=== PATIENT | female | born 1980 | race Caucasian/White ===

== ENCOUNTER 2017-04-07 07:53 | Inpatient (IN) | payer BC, MEDICAID ==
[2017-04-07] MEDS ORDERED: cefOXitin 2 GM Vial ONE (08:09)
[2017-04-07] MEDS ORDERED: Succinylcholine 200 MG/10 ML MDV ONE (08:19)
[2017-04-07] MEDS ORDERED: Neostigmine Methylsulfate 1 MG/ML 5 ML Syringe ONE (08:19)
[2017-04-07] MEDS ORDERED: Ondansetron 4 MG/2 ML SDV ONE (08:19)
[2017-04-07] MEDS ORDERED: Rocuronium 50 MG/5 ML Vial ONE (08:19)
[2017-04-07] MEDS ORDERED: Propofol 200 MG/20 ML SDV ONE (08:19)
[2017-04-07] MEDS ORDERED: Dexamethasone 4 MG/ML SDV ONE (08:19)
[2017-04-07] MEDS ORDERED: Glycopyrrolate 0.2 MG/ML 5 ML MDV ONE (08:19)
[2017-04-07] MEDS ORDERED: Gabapentin 300 MG Cap PO ONE (08:30)
[2017-04-07] MEDS ORDERED: Dextrose 5%-Lactated Ringers 1,000 ML IV SCH ×2 (08:30→14:30)
[2017-04-07] MEDS ORDERED: Acetaminophen 500 MG Tab PO ONE (08:30)
[2017-04-07] MEDS ORDERED: Celecoxib 200 MG Cap PO ONE (08:30)
[2017-04-07] MEDS ORDERED: Scopolamine 1.5 MG Transdermal Patch TOP ONE (08:30)
[2017-04-07] MEDS ORDERED: Levofloxacin/Dextrose 5%-Water 500 MG in Premix Bag 1 BAG IV ONE (09:45)
[2017-04-07] MEDS ORDERED: Lidocaine 0.4%/D5W 2 GM/500 ML BAG IV SCH (10:30)
[2017-04-07] MEDS ORDERED: Ropivacaine 53 ML, Dexamethasone 8 MG, EPINEPHrine 0.4 MG, Sodium Chloride 0.9% 24.6 ML NERVRT SCH ×4 (10:30)
[2017-04-07] MEDS ORDERED: Ketamine 500 MG/5 ML MDV IV ONE (10:30)
[2017-04-07] MEDS ORDERED: Lidocaine 2% 100 MG/5 ML Syringe IVPUSH ONE (10:30)
[2017-04-07] MEDS ORDERED: Levofloxacin 500 MG/20 ML SDV ONE (10:31)
[2017-04-07] MEDS ORDERED: diphenhydrAMINE 50 MG/ML SDV ONE ×2 (11:08)
[2017-04-07] MEDS ORDERED: Doxycycline 100 MG Vial ONE ×2 (11:37→12:04)
[2017-04-07] MEDS ORDERED: hydrOXYzine HCl 100 MG/2 ML SDV IM ONE (13:33)
[2017-04-07] MEDS ORDERED: Ondansetron 4 MG/2 ML SDV IVPUSH PRN (15:00)
[2017-04-07] MEDS ORDERED: SCOPOLAMINE PATCH CHECK TOP SCH (15:00)
[2017-04-07] MEDS ORDERED: Metoclopramide 10 MG/2 ML SDV IVPUSH PRN (15:00)
[2017-04-07] MEDS ORDERED: SCOPOLAMINE PATCH ASK TOP SCH (15:00)
[2017-04-07] MEDS ORDERED: Labetalol 20 MG/4 ML Syringe IVPUSH PRN (15:00)
[2017-04-07] MEDS ORDERED: hydrOXYzine HCl 100 MG/2 ML SDV IM PRN (15:00)
[2017-04-07] MEDS ORDERED: diphenhydrAMINE 50 MG/ML SDV IVPUSH PRN (15:00)
[2017-04-07] MEDS: Acetaminophen 325 MG Tab PO SCH ×2 (15:56→21:25)
[2017-04-07] MEDS: Gabapentin 300 MG Cap PO SCH ×2 (15:57→21:25)
[2017-04-07] MEDS ORDERED: MVI, Adult with Vitamin K 10 ML, Thiamine 200 MG, Chromium/Copper/Mang/Selen/Zn 1 ML in... IV SCH ×4 (16:00)
[2017-04-07] MEDS ORDERED: Pantoprazole 40 MG Vial IVPUSH SCH (16:30)
[2017-04-07] MEDS: Heparin Sodium 5,000 Units/ML Vial SUBCUT SCH (18:06)
[2017-04-08] MEDS: Doxycycline 100 MG in Sodium Chloride 0.9% 100 ML IV SCH ×2 (00:28→12:06)
[2017-04-08] MEDS ORDERED: Iohexol 647 MG/ML 50 ML SDV PO SCH (00:30)
[2017-04-08] MEDS: Acetaminophen 325 MG Tab PO SCH ×4 (03:20→21:12)
[2017-04-08] MEDS: Heparin Sodium 5,000 Units/ML Vial SUBCUT SCH ×2 (05:56→17:15)
[2017-04-08] MEDS ORDERED: TRETINOIN TP PRN (07:14)
[2017-04-08] MEDS ORDERED: Dextrose 5%-Lactated Ringers 1,000 ML IV SCH (07:15)
--- NOTE | 2017-04-08 08:15 | PN ---
DATE OF SERVICE: 04/08/2017 SUBJECTIVE: Sallie is postop day one. Her vital signs have been stable with a temp max of 100.1. The pain has been controlled. She has no other questions or concerns. OBJECTIVE: GENERAL: Sallie Allison is a 37-year-old female. VITAL SIGNS: TPR is 98.8, 104, 16. Blood pressure 149/87. HEENT: Negative. NECK: Supple. HEART: Regular rate and rhythm. LUNGS: Clear. ABDOMEN: Dressings dry and intact. Abdominal binder is on. KEITH drain has put out 65 mils of a light pink serous drainage. EXTREMITIES: SCDs are on and there is no peripheral edema. ASSESSMENT: Laparoscopic gastric bypass surgery, liver biopsy, repair of diaphragmatic hernia with partial gastrectomy for morbid obesity, hepatomegaly, diaphragmatic hernia with ischemic part of the bypass of stomach after hunch formation on 04/07/2017. PLAN: 1. Decrease IV to 100 mL per hour. 2. Step-2 gastric bypass diet with no cereal. 3. DC telemetry and continuous pulse ox. 4. Vital sign and O2 saturation checks every 4 hours. 5. She is to resume home medications which involve betamethasone cream b.i.d. and Retin-A. 6. Good pulmonary toilet encouraged. 7. We will evaluate p.r.n. or in a.m. Jamila Yan PA-C /[id number]
[2017-04-08] MEDS: Celecoxib 200 MG Cap PO SCH (08:18)
--- NOTE | 2017-04-08 08:47 | CR ---
Upper GI. Findings: Contrast within small bowel loops. No small bowel dilatation. No gross evidence for leakag e. Contrast is not past the distal anastomosis.
[2017-04-08] MEDS: Gabapentin 300 MG Cap PO SCH ×3 (09:28→20:04)
[2017-04-08] MEDS ORDERED: Benzocaine/Cetylpyridinium/Menthol Lozenge MUCMEM PRN (09:29)
[2017-04-08] MEDS ORDERED: Ondansetron 4 MG Tab.DIS PO PRN (12:31)
[2017-04-08] MEDS ORDERED: diphenhydrAMINE 25 MG Cap PO PRN (12:31)
[2017-04-09] MEDS: Acetaminophen 325 MG Tab PO SCH ×2 (03:12→09:11)
[2017-04-09] MEDS: Heparin Sodium 5,000 Units/ML Vial SUBCUT SCH (05:32)
[2017-04-09] MEDS ORDERED: Magnesium Hydroxide 400 MG/5 ML Susp 30 ML Cup PO PRN (07:37)
[2017-04-09 07:41] VITALS: BP 134/79
[2017-04-09] MEDS: Cyanocobalamin (Vitamin B12) 1,000 MCG/ML SDV IM ONE ×2 (07:46→08:29)
[2017-04-09] MEDS: Celecoxib 200 MG Cap PO SCH (07:47)
--- NOTE | 2017-04-11 10:23 | OR ---
DATE OF PROCEDURE: 04/07/2017 PREOPERATIVE DIAGNOSIS: Morbid obesity. POSTOPERATIVE DIAGNOSES: 1. Morbid obesity. 2. Marked hepatomegaly. 3. Paraesophageal diaphragmatic hernia. 4. Focal area of gastric ischemia, status post gastric pouch formation. OPERATIVE PROCEDURE: 1. Laparoscopic Edith-en-Y gastric bypass with long limb gastroenterostomy (40798). 2. Khanh-Cut needle liver biopsy (90203). 3. Repair of paraesophageal diaphragmatic hernia (10995). 4. Partial gastrectomy (25578). ANESTHESIA: General. TANK CAR CLEANER: Jamila Yan PA-C INDICATIONS FOR PROCEDURE: This is a 37-year-old female presenting with longstanding morbid obesity and increasingly significant comorbidities. After preoperative evaluation and discussion, she wished to proceed with a gastric bypass procedure. Potential risks of the procedure including bleeding, infection, leaks from various GI tract closures, and problems with bowel obstruction over time as well as possibility of cardiopulmonary, septic, or hemorrhagic complications leading to were discussed, and the patient wishes to proceed. DETAILS OF PROCEDURE: The patient was taken to the operating room and placed in a supine position. After general endotracheal anesthesia was induced, she was converted to a lithotomy position. Using a live ultrasound, bilateral subcostal transversus abdominis plane blocks were placed, and after that the abdomen was prepped and draped, and then the orogastric tube placed. At 15 cm inferior, 5 cm left of xiphoid process, a transverse incision was made. The peritoneal cavity was entered under direct vision with an Optiview trocar and inflated to 15 mmHg pressure with CO2. Laparoscope was reinserted. No underlying trocar insertion site injuries were seen. Following this, 5 additional trocars were placed across the upper and mid abdomen. General exploration was undertaken. The patient was noted to have a marked hepatomegaly with liver volume being roughly 2 to 3 times normal, and liver grossly fatty infiltrated. Khanh-Cut needle biopsies were obtained from the left lobe of the liver. Minimal bleeding from the biopsy sites was controlled with electrocautery. The omentum was then divided in the midline up to the level of the transverse colon. This allowed identification of the small bowel to the ligament of Treitz. Small bowel was then traced out 200 cm distal to that point where the ecrh-ho-ipyl enteroenterostomy was accomplished with an internal firing of the Endo-FREDRICK 60 mm stapler. The common opening was then closed transversely with the same stapler and angles anastomosed and mesenteric defect approximated with some 0 Ethibond stitch, along with fibrin sealant. Divided end of Edith limb was then from the mesentery for a few centimeters, which allowed an antecolic position of the Edith limb up to the level of the gastroesophageal junction without tension. Upon elevation of the liver, the patient was noted to have a moderate paraesophageal diaphragmatic hernia. This was associated with some perigastric fat and fundus of the stomach coming up anterior to the course of the esophagus. The area was reduced and the peritoneum overlying the hernia incised and reflected downward. The diaphragmatic hernia was then repaired with some 0 Ethibond sutures, reinforced with PTFE pledgets, and following this, the gastrointestinal balloon catheter was inflated to 15 mL and pulled up snugly against EG junction and that area marked with electrocautery over the apex of the balloon. With the balloon catheter having been withdrawn, the lesser omental tissue adjacent to gastric cardia was incised allowing dissection behind the stomach at that level. Pouch formation was initiated with a transverse firing of the FREDRICK stapler at the level of the cauterized yady at the gastric cardia. Pouch was then completed with 1 additional firing of the FREDRICK stapler up to and through the angle of His. Upon completion of the pouch, both staple lines were noted to be intact. At the corner of the bypassed portion of the stomach, this was quite ischemic in appearance, and given this, that area was then resected with additional FREDRICK stapler firing and that specimen of the stomach then retrieved and sent as a surgical specimen. The remaining areas of stomach at that point appeared to be well perfused with nicely intact staple lines. The anvil of a 25 mm EEA stapler was then attached to a [place] sump type tube. The latter was brought down through the mouth and taken out through a small opening in the gastric pouch, allowing the anvil likewise to be pulled down to within the gastric pouch. The main body of the EEA stapler was then placed through an opening in the Edith limb, brought up to the anvil, united with it, thus creating the gastrojejunostomy. Upon removal of the stapler, double donuts of mucosa were noted within it. Small bowel was closed off with a vascular staple line. Gastrojejunostomy was reinforced with some 0 Ethibond seromuscular stitch along with fibrin sealant. A leak test was accomplished with injection of 120 mL of air in the gastric pouch while the anastomosis was submerged with an antibiotic-containing saline solution. No leaks were identified. One Popeye-Quintero drain was then placed through the left lateral trocar site, positioned against the gastrojejunostomy and up over the area of the splenic fossa. The remaining trocars were removed and peritoneal cavity deflated. Incision was closed with some 4-0 Vicryl skin stitch, and the drain was similarly affixed with 4-0 Vicryl stitch. The patient was taken to the recovery room in satisfactory condition. Physician speech pathologist assistant, Jamila Yan PA-C, played an essential role in assisting in this case, helping to position the patient, retract structures as needed, as well as suturing and cutting sutures when indicated. Her presence improved the patient's safety and decreased the operative time. Choco Houston MD /[id number]
--- NOTE | 2017-04-11 10:38 | DISCH ---
DIAGNOSES: 1. Morbid obesity. 2. Marked hepatomegaly. 3. Paraesophageal diaphragmatic hernia. 4. Allergic rhinitis. 5. History of cholelithiasis status post cholecystectomy. 6. History of ulcerative colitis. PROCEDURES: Done on 04/07/2017, laparoscopic Edith-en-Y gastric bypass, long limb gastroenterostomy, liver biopsy, repair of paraesophageal diaphragmatic hernia and resection of a portion of bypassed stomach that became ischemic after the formation of gastric pouch. SUMMARY: This is a 37-year-old female presenting with longstanding morbid obesity. After preoperative evaluation and discussion, she wished to proceed with a gastric bypass procedure. This was done on the day of admission with the above combined procedures performed as well. Postoperatively, she has had no significant problems. The patient is presently on a step 2 gastric bypass diet. She will be discharged home with Celebrex and Tylenol for pain, and otherwise, will be seeing Jamila Yan in [facility] on 04/18/2017.
== END 2017-04-09 09:24 | disposition home or self-care (01) | DRG 403 ==
LOC: JP.SDS 07:53 → JP.SDSSCHI 07:53 → EDSTATUS 09:45 → JP.2SS 13:10
PROVIDERS: ADMIT Surgery; ATTEND Surgery
PROC: 0DB64ZZ Excision of Stomach, Percutaneous Endoscopic Approach (ICD-10-PCS; principal; 2017-04-07)
PROC: 0BQR4ZZ (ICD-10-PCS; principal; 2017-04-07)
PROC: 0D164ZA Bypass Stomach to Jejunum, Percutaneous Endoscopic Approach (ICD-10-PCS; principal; 2017-04-07)
PROC: 0FB24ZX Excision of Left Lobe Liver, Percutaneous Endoscopic Approach, Diagnostic (ICD-10-PCS; principal; 2017-04-07)
PROC: 0BQS4ZZ (ICD-10-PCS; principal; 2017-04-07)
DX: E66.01 Morbid (severe) obesity due to excess calories (principal); Z68.39 Body mass index [BMI] 39.0-39.9, adult; R16.0 Hepatomegaly, not elsewhere classified; K44.9 Diaphragmatic hernia without obstruction or gangrene; K76.0 Fatty (change of) liver, not elsewhere classified; K31.89 Other diseases of stomach and duodenum; Z87.891 Personal history of nicotine dependence; Z88.1 Allergy status to other antibiotic agents; Z88.2 Allergy status to sulfonamides; Z88.8 Allergy status to other drugs, medicaments and biological substances
CPT/HCPCS: 36415; 74240; 74240-26; 80053; 82728; 83735; 84100; 85027; 86850; 86900; 86901; 88305; 88307; 88313; 94762; A9270-GY; C9113; J0171; J0330; J0694; J1100; J1200; J1644; J1956; J2001; J2405; J2704; J2710; J2795; J3010; J3410; J3411; J3420; J7030; J7040; J7042; J7050; Q9967

== ENCOUNTER 2020-02-28 06:35 | Day surgery (SDC) | payer BC ==
[~2020-02-28 06:35] MED LIST: MVI, Adult with Vitamin K 10 ML, Thiamine 200 MG, Chromium/Copper/Mang/Selen/Zn 1 ML in... IV ONE
[2020-02-28] MEDS ORDERED: Propofol 200 MG/20 ML SDV ONE (06:56)
[2020-02-28] MEDS ORDERED: Midazolam 1 MG/ML 2 ML SDV ONE (06:56)
[2020-02-28] MEDS ORDERED: fentaNYL 100 MCG/2 ML SDV ONE (06:56)
[2020-02-28] MEDS ORDERED: Cyanocobalamin (Vitamin B12) 1,000 MCG/ML SDV IM ONE (07:00)
[2020-02-28] MEDS ORDERED: Lactated Ringers 1,000 ML IV SCH (07:00)
[2020-02-28] MEDS ORDERED: Glycopyrrolate 0.2 MG/ML 2 ML SDV IVPUSH ONE (07:45)
[2020-02-28] MEDS ORDERED: Ondansetron 4 MG/2 ML SDV IVPUSH ONE (09:30)
[2020-02-28 09:42] VITALS: BP 104/71; PULSE 73
[2020-02-29 17:13] LABS: H. PYLORI BREATH TEST Negative (Negative)
--- NOTE | 2020-03-03 10:14 | OR ---
DATE OF PROCEDURE: 02/28/2020 SURGEON: Choco Houston MD PREOPERATIVE DIAGNOSIS: Postprandial abdominal pain, status post Edith-en-Y gastric bypass. POSTOPERATIVE DIAGNOSES: 1. Postprandial abdominal pain, status post Edith-en-Y gastric bypass. 2. Normal upper gastrointestinal endoscopic exam, status post Edith-en-Y gastric bypass. OPERATIVE PROCEDURE: Upper GI endoscopy. ANESTHESIA: IV sedation. INDICATION FOR PROCEDURE: This is a 39-year-old presenting with postprandial abdominal pain. In the past, she has had episodes of H. pylori infection treated with antibiotics. She presents now with postprandial pain developing soon after eating. The plan is to proceed with upper GI endoscopy with biopsies as indicated. Potential risks including bleeding and perforation were discussed, and the patient wishes to proceed. DETAILS OF PROCEDURE: The patient was taken to the operating room and placed in the left lateral decubitus position. IV sedation was administered, after which the upper GI endoscope was passed orally through the length of the esophagus and into the gastric pouch, and from there through the gastrojejunostomy roughly 20 cm into the Edith limb. Overall, the examination was entirely normal. There were no areas of inflammation or stricturing. There was no bile or sense of obstructive process in the area of the Edith limb. At that point, the scope was then withdrawn and the procedure then concluded. Plan will be to obtain an H. pylori breath test today. We will otherwise continue the antisecretory medications. My suspicion will be made again for partial small bowel obstruction. We will obtain a CT scan of the abdomen and pelvis with IV and oral contrast on 03/05/20 and then see her immediately after that for further evaluation. The patient is down to a BMI of 18 and has a diagnosis of ulcerative colitis and Crohn's disease, but has not been on any of these medications, as colonoscopy was recently okay. One way or another in the short-term, we are going to need to address her nutritional status. If partial small bowel obstruction is not identified and we are not able to re- establish adequate oral intake, gastrostomy feeding tube may be necessary in the next few weeks. Choco Houston MD /[id number]
== END 2020-02-28 10:00 | disposition home or self-care (01) ==
LOC: JP.SDS 06:35
PROVIDERS: ATTEND Surgery
DX: R10.13 Epigastric pain (principal); E44.0 Moderate protein-calorie malnutrition; K91.2 Postsurgical malabsorption, not elsewhere classified; E53.8 Deficiency of other specified B group vitamins; E53.9 Vitamin B deficiency, unspecified; E55.9 Vitamin D deficiency, unspecified; E60 Dietary zinc deficiency; E50.9 Vitamin A deficiency, unspecified; B37.0 Candidal stomatitis; K21.9 Gastro-esophageal reflux disease without esophagitis; Z98.84 Bariatric surgery status; Z68.1 Body mass index [BMI] 19.9 or less, adult; Z98.890 Other specified postprocedural states; Z87.891 Personal history of nicotine dependence; Z87.19 Personal history of other diseases of the digestive system
CPT/HCPCS: 43235; 81025; 83013; J2250; J2405; J2704; J3010; J3411; J3420; J3490; J7120

== ENCOUNTER 2020-03-11 06:14 | Inpatient (IN) | payer BC, MEDICAID ==
[2020-03-11] MEDS ORDERED: Dexamethasone 4 MG/ML SDV ONE (06:17)
[2020-03-11] MEDS ORDERED: Rocuronium 50 MG/5 ML Vial ONE (06:17)
[2020-03-11] MEDS ORDERED: Neostigmine Methylsulfate 1 MG/ML 5 ML Syringe ONE (06:17)
[2020-03-11] MEDS ORDERED: fentaNYL 250 MCG/5 ML SDV ONE ×2 (06:17→08:46)
[2020-03-11] MEDS ORDERED: Propofol 200 MG/20 ML SDV ONE (06:17)
[2020-03-11] MEDS ORDERED: Glycopyrrolate 0.2 MG/ML 5 ML MDV ONE (06:17)
[2020-03-11] MEDS ORDERED: Ondansetron 4 MG/2 ML SDV ONE (06:17)
[2020-03-11] MEDS ORDERED: Succinylcholine 200 MG/10 ML MDV ONE (06:17)
[2020-03-11] MEDS ORDERED: Lidocaine 1% with EPINEPHrine 1:100,000 50 ML MDV ONE (06:30)
[2020-03-11] MEDS ORDERED: Bupivacaine 0.5% 50 ML MDV ONE (06:30)
[2020-03-11] MEDS ORDERED: Meropenem 500 MG SDV ONE (06:30)
[2020-03-11] MEDS ORDERED: Celecoxib 200 MG Cap PO ONE (06:45)
[2020-03-11] MEDS ORDERED: Scopolamine 1.5 MG Transdermal Patch TOP SCH (06:45)
[2020-03-11] MEDS ORDERED: Acetaminophen 500 MG Tab PO ONE (06:45)
[2020-03-11] MEDS ORDERED: Dextrose 5%-Lactated Ringers 1,000 ML IV SCH (07:00)
[2020-03-11] MEDS ORDERED: HYDROmorphone/Normal Saline 15 MG/30 ML PCA IV PRN (07:31)
[2020-03-11] MEDS ORDERED: Naloxone 0.4 MG/ML SDV IVPUSH PRN (07:31)
[2020-03-11] MEDS ORDERED: Meropenem 500 MG in Sodium Chloride 0.9% 50 ML IV ONE (08:00)
[2020-03-11] MEDS ORDERED: Naloxone 0.4 MG/ML SDV IV PRN (08:00)
[2020-03-11] MEDS ORDERED: Ketamine 500 MG/5 ML MDV IV SCH (08:15)
[2020-03-11] MEDS ORDERED: Magnesium Sulfate 2.4 GM in Sodium Chloride 0.9% 250 ML IV ONE (08:15)
[2020-03-11] MEDS ORDERED: Magnesium Sulfate 1.5 GM in Sodium Chloride 0.9% 100 ML IV SCH (08:15)
[2020-03-11] MEDS ORDERED: Ketamine 50 MG in Sodium Chloride 0.9% 49.5 ML IV SCH (08:15)
[2020-03-11] MEDS ORDERED: Lactated Ringers 1,000 ML ONE (09:48)
[2020-03-11] MEDS ORDERED: Ondansetron 4 MG/2 ML SDV IVPUSH ONE (10:22)
[2020-03-11] MEDS ORDERED: Metoclopramide 10 MG/2 ML SDV IVPUSH ONE (10:53)
[2020-03-11] MEDS: Cyclobenzaprine 10 MG Tab PO PRN (11:28)
[2020-03-11] MEDS: Dextrose 5%-Lactated Ringers 1,000 ML IV SCH ×2 (11:45→21:11)
[2020-03-11] MEDS ORDERED: Ondansetron 4 MG/2 ML SDV IVPUSH PRN (12:00)
[2020-03-11] MEDS ORDERED: Metoclopramide 10 MG/2 ML SDV IVPUSH PRN (12:00)
[2020-03-11] MEDS ORDERED: Acetaminophen 500 MG Tab PO PRN (12:00)
[2020-03-11] MEDS ORDERED: diphenhydrAMINE 50 MG/ML SDV IVPUSH PRN (12:00)
[2020-03-11] MEDS ORDERED: Labetalol 20 MG/4 ML Syringe IVPUSH PRN (12:00)
[2020-03-11] MEDS ORDERED: Calcium Gluconate 10% 1 GM/10 ML SDV IVPUSH PRN (12:00)
[2020-03-11] MEDS: Pantoprazole 40 MG Vial IVPUSH SCH (13:26)
[2020-03-11] MEDS: Acetaminophen 500 MG Tab PO SCH ×2 (14:22→21:09)
[2020-03-11] MEDS: Meropenem 500 MG in Sodium Chloride 0.9% 50 ML IV SCH ×2 (14:40→19:16)
[2020-03-11] MEDS: MVI, Adult with Vitamin K 10 ML, Thiamine 200 MG, Chromium/Copper/Mang/Selen/Zn 1 ML in... IV SCH ×4 (15:20)
--- NOTE | 2020-03-11 15:28 | OR ---
DATE OF PROCEDURE: 03/11/2020 SURGEON: Choco Houston MD PREOPERATIVE DIAGNOSES: Postprandial abdominal pain associated with: 1. Probable small bowel volvulus. 2. Probable vascular compression of duodenum (superior mesenteric artery syndrome). POSTOPERATIVE DIAGNOSES: 1. Partial small bowel obstruction secondary to small bowel volvulus. 2. Vascular compression of duodenum (superior mesenteric artery syndrome). OPERATIVE PROCEDURES: Exploratory laparotomy with lysis of adhesions and: 1. Reduction of small bowel volvulus and closure of internal hernia (79950). 2. Lysis of duodenal bands (96052). 3. Small bowel resection (72743). 4. Formation of Edith-en-Y duodenojejunostomy (30689). 5. Placement of Interceed mesh to displace pelvic and abdominal wall from underlying viscera to limit recurrent adhesion formation (00333). ANESTHESIA: General. MEDICAL RECORD TECHNICIAN: Jamila Yan PA-C INDICATIONS FOR PROCEDURE: This is a 39-year-old status post Edith-en-Y gastric bypass, who continues to have persistent problems with postprandial crampy abdominal pain and excessive weight loss with present BMI being in the 18 range. Upper GI endoscopy last week was unremarkable, and H pylori breath test was negative. A CT scan was subsequently obtained, which showed what appeared to be some twisting of the mesentery consistent with a small bowel volvulus. There was also a tight configuration of the angle between the superior mesenteric artery and aorta with some compression of the duodenum evident on CT scan, raising the likelihood of an element of superior mesenteric artery syndrome. The plan, therefore, will be to proceed with exploratory laparotomy. We will reduce any volvulus that might be necessary and close internal hernias and other small bowel resections as indicated. We will divide the Edith limb roughly 30 cm proximal to the present jejunojejunostomy and use that to bring up as a Edith limb to the junction of the second and third portions of the duodenum and also lyse the ligament of Treitz and duodenal bands for treatment of the probable superior mesenteric artery syndrome and then proceed with a secondary enteroenterostomy between the remaining Edith limb and the small bowel roughly 20 cm distal to the present jejunojejunostomy, so as to bypass any problems that might be present with that anastomosis, which at this time will require pancreaticoduodenal drainage both via the standard duodenal into the jejunal route, as well as the new duodenojejunostomy. Potential risks of the procedure including bleeding, infection, leaks from various GI tract closures, possible persistence of pain or other problems postoperatively, possible need for additional nutritional support via subsequently placed gastrostomy tube were all reviewed, and the patient wishes to proceed. At this point, we elected, after discussion, not to proceed with a gastrostomy tube in anticipation that she will likely be able to resume reasonably good oral intake more or less immediately after the surgery. DETAILS OF PROCEDURE: The patient was taken to the operating room and placed in a supine position. After general endotracheal anesthesia was induced, a Grimes catheter was inserted, and the abdomen was prepped and draped. The upper midline incision was made and carried down through the skin and subcutaneous tissue, and into the peritoneal cavity. Upon entering the peritoneal cavity, general exploration was undertaken. It was notable that the duodenum was obviously somewhat edematous and boggy. There was a palpable and quite narrow angle between the superior mesenteric artery and the aorta at the level where the duodenum crossed those structures. Apart from that, the Edith limb appeared to be unremarkable. There was a volvulus underneath the Edith limb containing several loops of small bowel. These were reduced and that mesenteric defect then closed with a 2-0 silk stitch. There was also a mesenteric defect to much lesser degree between the leaves of the jejunojejunostomy, and this was likewise closed at this time with a 2-0 silk stitch. Initially then, the ligament of Treitz was divided, and the additional duodenal bands superior to the duodenum as it passed underneath the superior mesenteric artery were taken down bluntly, resulting in a visible lowering of the duodenum as it passed underneath the superior mesenteric artery. At this point, the small bowel was traced out 20 cm proximal to the present jejunojejunostomy, where it was divided. Small bowel to small bowel was resected and the proximal end of this, which was marginally devascularized, this was felt not to be needed to be sent as a surgical specimen. The present Edith limb, still connected to the initial jejunojejunostomy, was then brought up easily through an antecolic approach to the junction of the second and third portions of the duodenum. After a stay stitch was placed, small enterotomies in each segment of bowel were made and a 60-mm FREDRICK costello load was used to create an internal opening, and the common opening then closed transversely with a purple load. Angles of anastomosis and mesenteric defect were reinforced with some 3-0 Vicryl stitch, as well as fibrin sealant. The GI tract continuity was then re-established with anastomosis between the remaining more proximal Edith limb which, at this point, still measured around 80 cm, and the small bowel slightly distal to the original jejunojejunostomy, this being about 20 cm. It was notable that the patient had several 100 cm of common limb, so this would by no means be an issue, as earlier in the case, the entire length of the small bowel was run and no additional abnormalities noted. This anastomosis was then accomplished with an internal firing of the Endo-FREDRICK 60 mm stapler, followed by a second 30 mm internal firing of the FREDRICK stapler. Common opening was closed transversely with a purple load, and the angles of anastomosis and mesenteric defect were approximated with some 3-0 Vicryl stitch. The Edith limb going up to the duodenum passed underneath the mesentery of this area of the anastomosis, but we were careful to configure that there was no compression in terms of how the underlying mesenteric defect was approximated. The second anastomosis was then reinforced with fibrin sealant as well and the abdomen irrigated with antibiotic-containing saline solution. The Interceed mesh was then placed underneath the incision, from there down toward the pelvis to limit recurrent adhesion formation. At that point, bilateral transversus abdominis plane blocks had been placed. Midline fascia was approximated with a #2 Vicryl stitch, which was then also anesthetized with some 1% lidocaine mixed with Marcaine. The subcutaneous tissue was then closed with 2 layers of 3-0 and 4-0 Vicryl stitch deep and mary for the skin. Dressing was applied. The patient was taken to the recovery room in satisfactory condition. Choco Houston MD /[id number]
[2020-03-11] MEDS: Heparin Sodium 5,000 Units/ML Vial SUBCUT SCH (17:08)
[2020-03-12] MEDS: Meropenem 500 MG in Sodium Chloride 0.9% 50 ML IV SCH (01:08)
[2020-03-12] MEDS: Cyclobenzaprine 10 MG Tab PO PRN ×3 (01:24→19:06)
[2020-03-12] MEDS: Dextrose 5%-Lactated Ringers 1,000 ML IV SCH ×2 (03:48→11:12)
[2020-03-12] MEDS ORDERED: methylPREDNISolone Sodium Succinate 125 MG/2 ML SDV IVPUSH ONE ×2 (04:35→13:15)
[2020-03-12] MEDS ORDERED: Iopamidol 612 MG/ML 50 ML SDV PO ONE (05:23)
[2020-03-12] MEDS: Heparin Sodium 5,000 Units/ML Vial SUBCUT SCH ×2 (06:15→18:18)
[2020-03-12] MEDS: Acetaminophen 500 MG Tab PO SCH ×2 (06:15→13:41)
[2020-03-12] MEDS ORDERED: hydrOXYzine HCl 25 MG Tab PO PRN (07:06)
[2020-03-12] MEDS ORDERED: Ondansetron 4 MG Tab.DIS PO PRN (07:06)
[2020-03-12] MEDS ORDERED: ClonazePAM 0.5 MG Tab PO PRN (07:15)
--- NOTE | 2020-03-12 07:48 | CRLCR ---
Indication: Post bariatric surgery Technique: Upper GI abdomen 3 views Comparison: None Findings/Impression: Oral contrast is intraluminal. No sign of contrast extravasation/leak. No sign of bowel obstruction. Postoperative free intraperitoneal air is expected. No other significant finding. Dictated by Ruben Chinchilla MD @ Mar 12 2020 7:42AM Signed by Dr. Ruben Chinchilla @ Mar 12 2020 7:46AM
[2020-03-12] MEDS: hydrOXYzine HCL 100 MG/2 ML SDV IM PRN ×4 (08:13→20:40)
[2020-03-12] MEDS ORDERED: fentaNYL/Normal Saline 600 MCG/30 ML PCA Vial IV PRN (09:00)
[2020-03-12] MEDS: SCOPOLAMINE PATCH CHECK TOP SCH (09:09)
[2020-03-12] MEDS: Celecoxib 200 MG Cap PO SCH ×2 (09:09→20:13)
--- NOTE | 2020-03-12 09:13 | PN ---
DATE OF SERVICE: 03/12/2020 SUBJECTIVE: Sallie has been afebrile. Oral intake 630 on a step-one diet. Urine output 1000. She is on the Dilaudid VEHICLE ASSEMBLER and getting scheduled Tylenol, Flexeril p.r.n., and scheduled on Celebrex. Reports extreme pain whenever she moves, especially when getting in and out of bed. Nursing staff states that she slept well during the night. She had no complaints and used her VEHICLE ASSEMBLER. She is recording better pain control. She is alert, wide awake, and angry. Requested to go through operative report, which was done. PHYSICAL EXAMINATION: GENERAL: Sallie Allison is a 39-year-old female, alert, oriented. VITAL SIGNS: TPR is 96, 49, 18, blood pressure 104/62. HEENT: Negative. NECK: Supple. HEART: Regular rate and rhythm. LUNGS: Clear. ABDOMEN: Dressings dry, intact. Abdominal binder is on. EXTREMITIES: Without peripheral edema. ASSESSMENT: Exploratory laparotomy with lysis of adhesions and: 1. Reduction of small bowel volvulus and closure of internal hernia. 2. Lysis of duodenal bands. 3. Small bowel resection. 4. Formation of Edith-en-Y duodenojejunostomy. 5. Placement of Interceed mesh to displace pelvic and small bowel from underlying viscera to limit recurrent adhesion formation. POSTOPERATIVE DIAGNOSES: 1. Partial small bowel obstruction secondary to small bowel volvulus. 2. Vascular compression of duodenum (superior mesenteric artery syndrome). PLAN: Decrease IV to 100 mL per hour, Zofran ODT 4 mg sublingual every 4 hours p.r.n. nausea, hydroxyzine or Atarax 25 mg every 4 hours p.r.n. pain and/or anxiety. Operative report was explained in detail to the patient. Encouraged to use incentive spirometer 10 times every hour while awake. Sallie also wanted an exact date of discharge, and parameters were discussed to discharge, will be management of pain, able to manage with her activities of daily living, and to either be passing flatus or have a bowel movement before discharge. The exact date is difficult to predict, but generally she may be able to be discharged either March 12 or . Jamila Yan PA-C /[id number]
[2020-03-12] MEDS ORDERED: diphenhydrAMINE 50 MG/ML SDV IVPUSH ONE (12:50)
[2020-03-12] MEDS: Pantoprazole 40 MG Vial IVPUSH SCH (13:23)
[2020-03-12] MEDS ORDERED: Sodium Chloride 0.9% 10 ML Syringe FLUSH ONE (13:39)
[2020-03-12] MEDS ORDERED: Iopamidol 755 Mg/ML 100 ML Bottle IV SCH (13:45)
--- NOTE | 2020-03-12 15:33 | CRLCT ---
INDICATION: Increased postop pain. Surgical history not provided at time of dictation. TECHNIQUE: CT abdomen acquired with 80 cc Isovue 370 IV contrast. Coronal and sagittal reconstructions. COMPARISON: CT of the abdomen and pelvis 03/05/2020. FINDINGS: There is new moderate intraperitoneal free air compatible with recent surgery. New moderate amount of simple appearing free fluid within the visualized right pelvis. Prior postoperative changes of Edith-en-Y gastric bypass. There appears to be a new anastomosis in the central upper abdomen which could represent interval small bowel resection. No evidence of bowel obstruction on today`s exam. There is dense enteric contrast within the colon which causes some streak artifact. This may be from a prior exam. There is a 2.3 x 3.6 extraluminal gas and fluid collection within the left anterior abdomen (series 2, image 63). No peripheral capsule to suggest an abscess. New midline anterior abdominal wall surgical mary. The liver, spleen, pancreas, and adrenal glands are negative. Hepatic and portal veins are patent. Cholecystectomy. Stable mild intra and extrahepatic bile duct dilation which is likely related to post cholecystectomy state. Symmetric enhancement of the kidneys. No change in moderate right hydronephrosis. No obstructing stone is identified in the upper abdomen. No left hydronephrosis. Partially visualized bladder appears distended. No lymphadenopathy. The bones are unremarkable. The lung bases are clear. IMPRESSION: 1. New postoperative changes in the abdomen with anastomosis in the central upper abdomen, moderate intraperitoneal free air, free fluid in the right pelvis, and midline abdominal wall surgical mary. No evidence of bowel obstruction on today`s exam. 2. 2.3 x 3.6 cm non organized extraluminal gas and fluid collection in the left anterior abdomen. 3. Stable moderate right hydronephrosis of uncertain etiology. Please note that all CT scans at this facility use dose modulation, iterative reconstruction, and/or weight-based dosing when appropriate to reduce radiation dose to as low as reasonably achievable. Dictated by Jamila Reese MD @ Mar 12 2020 3:12PM Signed by Dr. Jamila Reese @ Mar 12 2020 3:32PM
--- NOTE | 2020-03-12 15:50 | CRLCT ---
INDICATION: Pain. COMPARISON: none TECHNIQUE: CT volumetric acquisition was performed of the thorax during intravenous infusion of 55 cc of Isovue-370 nonionic intravenous contrast. FINDINGS: The CT images are of acceptable quality and demonstrate normal uniform vascular enhancement within the pulmonary arteries. There are no suspicious filling defects which would indicate pulmonary thromboemboli. The lungs are clear of suspicious nodules, masses or infiltrates. There is no evidence of pulmonary edema. The heart size appears normal. There is no evidence of pericardial fluid or pleural fluid. There is no evidence of mediastinal or axillary lymphadenopathy. There is a large amount of free air within the visualized upper abdomen predominantly about the left hepatic margin and about the patient`s Edith-en-Y gastric bypass surgical site. A small amount of air tracks within the periportal region. IMPRESSION: Positive findings pneumoperitoneum which could reflect potential perforation of the gastric bypass surgical site. No evidence of pulmonary thromboembolism. The lungs appear clear. Note: I discussed the exam findings with Jamila Yan PA-C at the completion of the exam on 03/12/2020 at 3:43 p.m. Dictated by Reno Harrison MD @ 03/12/2020 3:48:48 PM Please note that all CT scans at this facility use dose modulation, iterative reconstruction, and/or weight-based dosing when appropriate to reduce radiation dose to as low as reasonably achievable. Dictated by: Reno Harrison MD @ 03/12/2020 15:48:55 (Electronically Signed)
[2020-03-12] MEDS: MVI, Adult with Vitamin K 10 ML, Thiamine 200 MG, Chromium/Copper/Mang/Selen/Zn 1 ML in... IV SCH ×4 (15:57)
[2020-03-12] MEDS: Acetaminophen 1,000 MG in Premix Bag 1 BAG IV SCH (17:03)
[2020-03-12] MEDS ORDERED: diphenhydrAMINE 25 MG Cap PO PRN (19:54)
[2020-03-12] MEDS ORDERED: diphenhydrAMINE 50 MG/ML SDV IVPUSH PRN (19:54)
[2020-03-12] MEDS ORDERED: Ondansetron 4 MG/2 ML SDV IVPUSH PRN (19:54)
[2020-03-12] MEDS ORDERED: fentaNYL/Normal Saline 600 MCG/30 ML PCA Vial IV SCH (20:00)
[2020-03-12] MEDS ORDERED: Montelukast 10 MG Tab PO SCH (21:00)
[2020-03-12] MEDS: Piperacillin/Tazobactam 3.375 GM in Sodium Chloride 0.9% 50 ML IV SCH (21:32)
[2020-03-13] MEDS ORDERED: Ondansetron 4 MG/2 ML SDV IVPUSH PRN
[2020-03-13] MEDS ORDERED: diphenhydrAMINE 25 MG Cap PO PRN
[2020-03-13] MEDS ORDERED: fentaNYL/Normal Saline 600 MCG/30 ML PCA Vial IV SCH
[2020-03-13] MEDS ORDERED: diphenhydrAMINE 50 MG/ML SDV IVPUSH PRN
[2020-03-13] MEDS ORDERED: Naloxone 0.4 MG/ML SDV IVPUSH PRN
[2020-03-13] MEDS: Acetaminophen 1,000 MG in Premix Bag 1 BAG IV SCH ×3 (00:33→10:18)
[2020-03-13] MEDS: hydrOXYzine HCL 100 MG/2 ML SDV IM PRN ×2 (00:55→09:04)
[2020-03-13] MEDS: Dextrose 5%-Lactated Ringers 1,000 ML IV SCH (02:35)
[2020-03-13] MEDS: Piperacillin/Tazobactam 3.375 GM in Sodium Chloride 0.9% 50 ML IV SCH (03:04)
[2020-03-13] MEDS: Cyclobenzaprine 10 MG Tab PO PRN (03:09)
[2020-03-13] MEDS ORDERED: Sodium Chloride 0.9% 10 ML Syringe FLUSH ONE (05:43)
[2020-03-13] MEDS ORDERED: Iopamidol 612 MG/ML 500 ML Multipack Bottle IV ONE (05:43)
[2020-03-13] MEDS ORDERED: methylPREDNISolone Sodium Succinate 125 MG/2 ML SDV IVPUSH ONE (06:30)
[2020-03-13] MEDS: Heparin Sodium 5,000 Units/ML Vial SUBCUT SCH (06:30)
[2020-03-13] MEDS ORDERED: diphenhydrAMINE 50 MG/ML SDV IVPUSH ONE (06:35)
[2020-03-13] MEDS ORDERED: Iopamidol 612 MG/ML 30 ML SDV PO ONE (07:02)
[2020-03-13] MEDS ORDERED: Piperacillin/Tazobactam/Dext 3.375 GM in Premix Bag 1 BAG IV SCH (08:00)
[2020-03-13 08:34] VITALS: BP 113/61; PULSE 62
[2020-03-13] MEDS: SCOPOLAMINE PATCH CHECK TOP SCH (08:52)
[2020-03-13] MEDS: Celecoxib 200 MG Cap PO SCH (08:52)
[2020-03-13] MEDS ORDERED: Cyanocobalamin (Vitamin B12) 1,000 MCG/ML SDV IM ONE (09:00)
--- NOTE | 2020-03-13 10:40 | CT ---
Abdomen Pelvis w Cont CLINICAL HISTORY: Postbariatric surgery COMPARISON: 03/12/2020. TECHNIQUE: Axial tomographic images are obtained from the dome of the diaphragm to the pubic symphysis with IV contrast enhancement. Oral contrast was used. 03/12/2020 FINDINGS: The lung bases are clear. The liver shows no mass or biliary dilatation. Gallbladder is been removed. The spleen has a normal size and shape. Patient is status post the bariatric surgery with Edith-en-Y. There is free intraperitoneal air which is similar to prior study. The there is no extravasation of oral contrast. Small pocket of the mottled air seen in the anterior left abdomen on prior study has involuted. Some of this may been volume averaging with the bowel and bowel content. The pancreas has a normal contour. The adrenal glands appear normal bilaterally. The kidneys no mass, stones or hydronephrosis. The aorta is normal contour. There is no suspicious retroperitoneal adenopathy. There is moderate free fluid in the pelvis. This is increased since prior study. Bladder has a normal contour. Uterus is to the left of midline. There is some mild gaseous distention of colon which is likely some ileus. IMPRESSION: Residual free intraperitoneal air which is postoperative No evidence to suggest extravasation on the current study Increase in free pelvic fluid is nonspecific. Gas is distention of the colon is likely some postop ileus ileus
[2020-03-13] MEDS ORDERED: oxyCODONE 5 MG Tab PO PRN (11:15)
[2020-03-13] MEDS: Pantoprazole 40 MG Vial IVPUSH SCH (12:18)
[2020-03-13] MEDS ORDERED: Magnesium Hydroxide 400 MG/5 ML Susp 30 ML Cup PO PRN (13:12)
--- NOTE | 2020-03-14 09:22 | DISCH ---
ADMISSION DIAGNOSES: 1. Postprandial abdominal pain. 2. Status post Edith-en-Y gastric bypass surgery. 3. Unspecified surgical malabsorption. 4. B12 deficiency. 5. Moderate protein-calorie malnutrition, low weight for height. 6. Depression. PHQ-9 of 14. DISCHARGE DIAGNOSIS: Exploratory laparotomy with lysis of adhesions. Date of procedure, 03/11/2020. Surgeon, Choco Houston MD. 1. Reduction of small bowel volvulus and closure of internal hernia. 2. Lysis of duodenal bands. 3. Small bowel resection. 4. Formation of Edith-en-Y duodenal jejunostomy. 5. Placement of Interceed mesh to displace pelvic and abdominal wall from underlining viscera to limit recurrent adhesion formation. POSTOPERATIVE DIAGNOSES: 1. Partial small bowel obstruction secondary to small bowel volvulus. 2. Vascular compression of duodenum (superior mesenteric artery syndrome). HISTORY: Sallie Allison is a 39-year-old, status post Edith-en-Y gastric bypass surgery, who continues to have persistent problems with postprandial crampy abdominal pain and excessive weight loss with BMI of 18.3. Upper GI last week was unremarkable, and H pylori breath test was negative. A CT scan was obtained and showed twisting of the mesentery, consistent with a small bowel volvulus. There was also a tight configuration of the angle between the superior mesenteric artery and aorta with some compression of the duodenum evident on CT scan, raising the likelihood of superior mesenteric artery syndrome. After preoperative evaluation, discussion of possible risks and possible complications, the patient wished to proceed with surgical procedure. HOSPITAL COURSE: Sallie had her surgery on 03/11/2020. She had no operative complications. She slept well the night she had surgery using her Dilaudid MILLER HEAD WET PROCESS, and she was given scheduled Celebrex and scheduled acetaminophen. Sallie went down for her upper GI x-ray, and there was still some contrast noted, so she went down for the third x-ray and the contrast was completely clear. At the time of report, she reported her pain was not controlled, and she had severe pain when getting in and out of bed. Dilaudid MILLER HEAD WET PROCESS was discontinued, and she was started on fentanyl MILLER HEAD WET PROCESS. IV was decreased to 100 mL per hour. She was started on Zofran 4 mg sublingual, and for additional pain, she has hydroxyzine 100 mg IM, which was already ordered, or she can take Atarax 25 mg every 4 hours p.r.n. for pain and anxiety. Operative report was available and read to the patient, and she was given information on superior mesenteric artery syndrome. Postop day 1, pain continue to be an issue, and she was given everything that was available that was ordered, and with the increase in pain and she did go for a walk, oximetry did decrease to 88%. A CT of abdomen and pelvis and a CT of the lungs were obtained. Dr. Carmelo Gan was consulted. He did see the patient during her fentanyl patch. At that point, she declined to see him any longer. Her fentanyl dose was increased via MILLER HEAD WET PROCESS. She continued to get Celebrex, Vistaril either IM or oral, Flexeril, and Tylenol was changed to IV to assure adequate pain management. With these medications, Sallie remained to be wide awake and looked comfortable in bed and ambulating. Pain did increase with getting out of bed and back into bed. She did request the evening of 03/12/2020 to be transferred. Carmelo Gan arranged transfer to [facility] with . The patient declined going to [place] and requested to be discharged on postoperative day #2. She had removed her scopolamine patch and Aquacel dressing. On postoperative day 2, a CT was obtained which showed new postoperative changes in the abdomen with anastomosis in the central upper abdomen, moderate intraperitoneal free air, free fluid in the right pelvis, and midline abdominal wall surgical mary. No evidence of bowel obstruction on today's exam. 2.3 x 3.6 cm, non-organized extraluminal gas and fluid collection, left anterior abdomen. Stable moderate right hydronephrosis of uncertain etiology. Sallie requested to be discharged. Vital signs were stable and afebrile. Oral intake was not adequate, but the patient requested to leave anyway at 290 mL. Urine output 3200. She received adequate nutritional education from the dietitian. There has been no bowel movement, but passing very little flatus per the patient report. The patient requested to be discharged to home with reluctance because she has not had a bowel movement and concern for lack of oral intake. This was verbalized to the patient, but she requested to be discharged and understood the risks of dehydration and possibility of postop ileus. PHYSICAL EXAMINATION: GENERAL: Sallie Allison is a 39-year-old female. VITAL SIGNS: Height is 5 feet 5.75 inches. Weight is 113 pounds. TPR at 0833 on 03/13/2020, 98.3, 62, 18, and blood pressure 113/61. HEENT: Negative. NECK: Supple. HEART AND LUNGS: Declined. ABDOMEN: [place] intact. Abdominal binder is on. Report per nursing staff, refused exam. EXTREMITIES: Negative. DISPOSITION: Discharged to home. Followup appointment, 03/21/2020 at 10 a.m. NEW PRESCRIPTIONS: 1. Celebrex 200 mg oral twice daily, #28. 2. Flexeril 10 mg oral q.8 hours p.r.n. muscle spasms, #30. 3. Milk of magnesia 30 mL, 2 doses were sent home with the patient to take 1 today and 1 tomorrow. 4. Oxycodone 5 mg every 4 hours p.r.n. pain, #42. 5. Tylenol 650 mg oral q.4 hours p.r.n. pain. 6. Zofran ODT 4 mg every 4 hours p.r.n. nausea. She is to resume taking her home medication which she states she has not been taking anything at home. She is prescribed: 1. Clonazepam 0.5 mg twice daily p.r.n. anxiety. 2. Singulair 10 mg oral at bedtime. 3. Hydroxyzine 5 to 10 mg 3 times a day p.r.n. anxiety. 4. 1 g 4 times a day (Carafate). At her first postop appointment, we will review recommended vitamins and supplements. DIET: Step 2 gastric bypass with no cereal until 03/25/2020. ACTIVITY: No lifting greater than 10 pounds for 6 weeks. Other activity: Walk at least 6 times inside your home daily. Driving: Do not drive for 1 week and while on narcotic pain medication. Shower/bathing: May shower. DISCHARGE INSTRUCTIONS: Notify provider if any fever, increased pain, swelling, redness, drainage, nausea, or vomiting. Wound incision care: Keep site clean and dry. Wear abdominal binder for 6 weeks and then as tolerated. SPECIAL INSTRUCTION: Use incentive spirometer 10 times every hour while awake.
== END 2020-03-13 13:39 | disposition home or self-care (01) | DRG 221 ==
LOC: JP.SDS 06:14 → JP.SDSSCHI 06:14 → EDSTATUS 07:15 → JP.MS 11:20
PROVIDERS: ADMIT Surgery; ATTEND Surgery
PROC: 0DS80ZZ Reposition Small Intestine, Open Approach (ICD-10-PCS; principal; 2020-03-11)
PROC: 0D190ZA Bypass Duodenum to Jejunum, Open Approach (ICD-10-PCS; 2020-03-11)
PROC: 0DB80ZZ Excision of Small Intestine, Open Approach (ICD-10-PCS; 2020-03-11)
PROC: 3E0M05Z Introduction of Adhesion Barrier into Peritoneal Cavity, Open Approach (ICD-10-PCS; 2020-03-11)
DX: K95.89 Other complications of other bariatric procedure (principal); K56.2 Volvulus; K55.1 Chronic vascular disorders of intestine; E44.0 Moderate protein-calorie malnutrition; F32.9 Major depressive disorder, single episode, unspecified; K91.2 Postsurgical malabsorption, not elsewhere classified; Z68.1 Body mass index [BMI] 19.9 or less, adult
CPT/HCPCS: 36415; 71275; 74160; 74177; 74177-26; 74240; 80053; 83735; 84100; 85025; 93005; 93010; 94762; A9270-GY; C9113; J0131; J0171; J0330; J1100; J1170; J1200; J1644; J2020; J2185; J2405; J2543; J2704; J2710; J2765; J2795; J2930; J3010; J3410; J3411; J3420; J3475; J3490; J7050; J7120; J7121; Q9967